=== PATIENT | female | born 1960 | race American Indian/Alaskan Native ===

== ENCOUNTER 2017-09-11 17:28 | Inpatient (IN) | payer MEDICARE ==
[2017-09-11 17:43] LABS: Basophils % (Auto) 0.9 % (0.0-1.8); Eosinophils % (Auto) 4.5 % (0.0-4.3); Hematocrit 40.3 % (30.3-42.9); Hemoglobin 12.7 gm/dl (10.1-14.3); Mean Corpuscular HGB Conc 32 % (30-34); Mean Corpuscular Hemoglobin 27 pg (28-32); Mean Corpuscular Volume 87 fl (79-97); Platelet Count 235 K/mm3 (140-440); Red Blood Count 4.64 M/mm3 (3.65-5.03); Red Cell Distribution Width 15.8 % (13.2-15.2)
--- NOTE | 2017-09-11 17:58 | Cat Scan Report ---
FINAL REPORT PROCEDURE: CT HEAD/BRAIN WO CON TECHNIQUE: Computerized tomography of the head was performed without contrast material. HISTORY: neuro deficits < 6hrs or sx present upon awakening COMPARISON: 07/14/2017 FINDINGS: Skull and scalp: Numerous sclerotic lesions in the calvarium suspicious for metastatic disease. Defer to nuclear medicine bone scan or MRI. Paranasal sinuses: Moderate fluid left mild fluid right mastoid. Coalescent air cells left side. Slight mucosal thickening left posterior maxillary sinus. Ventricles and subarachnoid spaces: Normal. Cerebrum: No acute intracranial bleed. Multiple infarcts and areas of encephalomalacia basal ganglia thalami left frontal high right parietal brain deep white matter. Cerebellum and brainstem: No acute intracranial bleed. Multiple areas of low to medium attenuation in the cerebellar hemispheres similar prior study. Low attenuated area in the eamon similar prior study. Vasculature: No hyperdense MCA sign Comments: None. IMPRESSION: Multiple areas of lacunar disease with prior encephalomalacic changes basal ganglia cerebellar hemispheres similar to prior study. If symptoms and or concern persists recommend followup MRI to further evaluate. No hyperdense MCA sign seen at this time.
[2017-09-11 18:00] LABS: Calcium 6.8 mg/dL (8.4-10.2); Chloride 94.7 mmol/L (98-107); Potassium 3.2 mmol/L (3.6-5.0)
[2017-09-11 18:02] LABS: INR 1.27 (0.87-1.13); Partial Thromboplastin Time 34.9 Sec. (24.2-36.6)
[2017-09-11] MEDS ORDERED: DILANTIN 1,000 MG in NACL 0.9% 250ML 250 ML IV ONE (18:42)
--- NOTE | 2017-09-11 18:42 | Emergency Department Report ---
ED General Adult HPI - General Chief complaint: Neuro Symptoms/Deficit Stated complaint: POSS CVA Time Seen by Provider: 09/11/17 17:33 Source: patient, family, EMS (verbal report received from EMS. My EMS disclaimerems notes not available at time of chart dictation), RN notes reviewed, old records reviewed Mode of arrival: Stretcher Limitations: No Limitations - History of Present Illness Initial comments: This is a 57-year-old female who is previously unknown to this provider. Past medical history includes hypertension, stroke, end-stage renal disease on dialysis. Patient may also have a history of seizure disorder, no recent EEG at this hospital as noted. Patient brought to the hospital by EMS as a possible code stroke. As per verbal report from EMS, patient had a seizure, and subsequently had left arm weakness and possible slurred speech. All of these symptoms have since resolved. Patient denies all symptoms. Her symptoms do not radiate anywhere, and he did not have exacerbating or relieving factors. Of note, patient admitted to this hospital in June of this year for similar symptoms, MRI, MRA were negative for acute and significant findings, and an EEG was recommended, which does not appear to have been performed. Patient currently has a GCS of 15, with an NIH score of 0. Case was presenting to consult the stroke neurologist, Dr. Rashawn Keane; he agreed that the patient did not meet criteria for TPA. He did recommend initiation of Dilantin, 300 mg orally daily at bedtime. He also recommends EEG. I also discussed the case with the patient's covering is support analyst, Dr. Luis A Méndez ; he is going to arrange dialysis. The patient had emergent CTA head and neck . This was negative. The case was presented to the Hospital physician, Dr. Johnson, accepted the patient to the medical service. Working diagnosis at this time is seizure disorder with resolved postictal state and hemiparesis. -: Sudden Location: left, upper extremity Consistency: now resolved Improves with: none Worsens with: none Associated Symptoms: denies: confusion, chest pain, cough, diaphoresis, fever/ chills, loss of appetite, malaise, nausea/vomiting, shortness of breath, syncope , weakness - Related Data Home Medications Medication Instructions Recorded Confirmed Last Taken Ondansetron HCl 4 mg PO BID 06/10/17 09/11/17 09/10/17 Aspirin [Aspirin BABY CHEW TAB] 81 mg PO DAILY 09/11/17 09/11/17 09/10/17 AtorvaSTATin [Lipitor] 40 mg PO QHS 09/11/17 09/11/17 09/10/17 Lisinopril [Zestril] 5 mg PO DAILY 09/11/17 09/11/17 09/10/17 Megestrol Acetate [Megestrol 20 mg PO BID 09/11/17 09/11/17 Unknown Acetate] Verapamil ER [Calan SR] 240 mg PO DAILY 09/11/17 09/11/17 09/10/17 Previous Rx's Medication Instructions Recorded Last Taken Type Apixaban [Eliquis] 5 mg PO BID #60 tablet 07/18/17 09/10/17 Rx Sertraline [Zoloft] 25 mg PO QHS #30 tablet 07/18/17 09/10/17 Rx Allergies Allergy/AdvReac Type Severity Reaction Status Date / Time No Known Allergies Allergy Verified 09/11/17 18:05 ED Review of Systems ROS: Stated complaint: POSS CVA Other details as noted in HPI ED Past Medical Hx - Past Medical History Hx CVA: Yes (CVA 2016, TIA x12) Hx Congestive Heart Failure: Yes Hx Diabetes: No Hx Renal Disease: Yes (Dialysis MWF) Hx Asthma: No Hx COPD: No - Surgical History Additional Surgical History: Left AV graft - Social History Smoking Status: Never Smoker Substance Use Type: None - Medications Home Medications: Home Medications Medication Instructions Recorded Confirmed Last Taken Type Ondansetron HCl 4 mg PO BID 06/10/17 09/11/17 09/10/17 History Apixaban [Eliquis] 5 mg PO BID #60 tablet 07/18/17 09/11/17 09/10/17 Rx Sertraline [Zoloft] 25 mg PO QHS #30 tablet 07/18/17 09/11/17 09/10/17 Rx Aspirin [Aspirin BABY CHEW TAB] 81 mg PO DAILY 09/11/17 09/11/17 09/10/17 History AtorvaSTATin [Lipitor] 40 mg PO QHS 09/11/17 09/11/17 09/10/17 History Lisinopril [Zestril] 5 mg PO DAILY 09/11/17 09/11/17 09/10/17 History Megestrol Acetate [Megestrol 20 mg PO BID 09/11/17 09/11/17 Unknown History Acetate] Verapamil ER [Calan SR] 240 mg PO DAILY 09/11/17 09/11/17 09/10/17 History ED Physical Exam - General Limitations: No Limitations General appearance: alert, in no apparent distress - Head Head exam: Present: atraumatic, normocephalic - Eye Eye exam: Present: normal appearance, EOMI. Absent: nystagmus - ENT ENT exam: Present: normal exam, normal orophraynx, mucous membranes moist, normal external ear exam - Neck Neck exam: Present: normal inspection, full ROM - Respiratory Respiratory exam: Present: normal lung sounds bilaterally. Absent: respiratory distress - Cardiovascular Cardiovascular Exam: Present: regular rate, normal rhythm, normal heart sounds. Absent: systolic murmur, diastolic murmur, rubs, gallop - GI/Abdominal GI/Abdominal exam: Present: soft, normal bowel sounds. Absent: distended, tenderness, guarding, rebound, rigid, pulsatile mass - Extremities Exam Extremities exam: Present: normal inspection, full ROM, normal capillary refill , other (upper extremity AV fistula with no redness, pus or or cellulitis). Absent: pedal edema, joint swelling, calf tenderness - Back Exam Back exam: Present: normal inspection, full ROM. Absent: tenderness, CVA tenderness (R), paraspinal tenderness, vertebral tenderness - Neurological Exam Neurological exam: Present: alert, oriented X3, CN II-XII intact, other ( Extraocular movements intact. Tongue midline. No facial droop. Facial sensation intact to light touch in the V1, V2, V3 distribution bilaterally. 5 and 5 strength in 4 extremities.. Sensation is intact to light touch in 4 extremities.). Absent: motor sensory deficit - Psychiatric Psychiatric exam: Present: normal affect, normal mood - Skin Skin exam: Present: warm, dry, intact, normal color. Absent: rash ED Course Vital Signs 09/11/17 09/11/17 09/11/17 17:58 18:01 18:05 Temperature 98.4 F Pulse Rate 99 H 92 H 93 H Respiratory 13 18 Rate Blood Pressure 136/93 136/93 Blood Pressure [Right] O2 Sat by Pulse 100 Oximetry 09/11/17 09/11/17 09/11/17 18:15 18:30 18:45 Temperature Pulse Rate 96 H 97 H 96 H Respiratory 15 11 L 15 Rate Blood Pressure 136/92 142/103 153/99 Blood Pressure [Right] O2 Sat by Pulse Oximetry 09/11/17 09/11/17 09/11/17 19:00 19:15 19:30 Temperature Pulse Rate 97 H 99 H 98 H Respiratory 14 12 16 Rate Blood Pressure 156/101 161/103 157/103 Blood Pressure [Right] O2 Sat by Pulse Oximetry 09/11/17 09/11/17 09/11/17 19:45 20:00 20:15 Temperature Pulse Rate 101 H 102 H 104 H Respiratory 14 16 17 Rate Blood Pressure 148/101 144/100 145/106 Blood Pressure [Right] O2 Sat by Pulse Oximetry 09/11/17 21:47 Temperature Pulse Rate 102 H Respiratory 20 Rate Blood Pressure Blood Pressure 138/100 [Right] O2 Sat by Pulse 98 Oximetry - Consultations Consultation #1: 09/11/17 22:08 Neurology: Dr Rashawn Keane Nephrology: [facility] medicine: Dr. Johny Pool Medical Decision Making - Lab Data Result diagrams: 09/11/17 17:30 09/11/17 17:30 Vital Signs 09/11/17 09/11/17 09/11/17 17:58 18:01 18:05 Temperature 98.4 F Pulse Rate 99 H 92 H 93 H Respiratory 13 18 Rate Blood Pressure 136/93 136/93 Blood Pressure [Right] O2 Sat by Pulse 100 Oximetry 09/11/17 09/11/17 09/11/17 18:15 18:30 18:45 Temperature Pulse Rate 96 H 97 H 96 H Respiratory 15 11 L 15 Rate Blood Pressure 136/92 142/103 153/99 Blood Pressure [Right] O2 Sat by Pulse Oximetry 09/11/17 09/11/17 09/11/17 19:00 19:15 19:30 Temperature Pulse Rate 97 H 99 H 98 H Respiratory 14 12 16 Rate Blood Pressure 156/101 161/103 157/103 Blood Pressure [Right] O2 Sat by Pulse Oximetry 09/11/17 09/11/17 09/11/17 19:45 20:00 20:15 Temperature Pulse Rate 101 H 102 H 104 H Respiratory 14 16 17 Rate Blood Pressure 148/101 144/100 145/106 Blood Pressure [Right] O2 Sat by Pulse Oximetry 09/11/17 21:47 Temperature Pulse Rate 102 H Respiratory 20 Rate Blood Pressure Blood Pressure 138/100 [Right] O2 Sat by Pulse 98 Oximetry Lab Results 09/11/17 09/11/17 09/11/17 Range/Units 17:30 17:30 17:30 WBC 12.0 H (4.5-11.0) K/mm3 RBC 4.64 (3.65-5.03) M/mm3 Hgb 12.7 (10.1-14.3) gm/dl Hct 40.3 (30.3-42.9) % MCV 87 (79-97) fl MCH 27 L (28-32) pg MCHC 32 (30-34) % RDW 15.8 H (13.2-15.2) % Plt Count 235 (140-440) K/mm3 Lymph % (Auto) 22.8 (13.4-35.0) % Garfield % (Auto) 9.5 H (0.0-7.3) % Eos % (Auto) 4.5 H (0.0-4.3) % Baso % (Auto) 0.9 (0.0-1.8) % Lymph # 2.7 (1.2-5.4) K/mm3 Garfield # 1.1 H (0.0-0.8) K/mm3 Eos # 0.5 H (0.0-0.4) K/mm3 Baso # 0.1 (0.0-0.1) K/mm3 Seg Neutrophils % 62.3 (40.0-70.0) % Seg Neutrophils # 7.5 (1.8-7.7) K/mm3 PT 16.6 H (12.2-14.9) Sec. INR 1.27 H (0.87-1.13) APTT 34.9 (24.2-36.6) Sec. Thrombin Time (15.1-19.6) Sec. Sodium 141 (137-145) mmol/L Potassium 3.2 L (3.6-5.0) mmol/L Chloride 94.7 L (98-107) mmol/L Carbon Dioxide 18 L (22-30) mmol/L Anion Gap 32 mmol/L BUN 52 H (7-17) mg/dL Creatinine 9.5 H (0.7-1.2) mg/dL Estimated GFR 5 ml/min BUN/Creatinine Ratio 5 % Glucose 106 H (65-100) mg/dL Calcium 6.8 L (8.4-10.2) mg/dL Troponin T 0.058 H (0.00-0.029) ng/mL Triglycerides 131 (2-149) mg/dL Cholesterol 122 (50-199) mg/dL LDL Cholesterol Direct 60 (50-130) mg/dL HDL Cholesterol 36 L (40-59) mg/dL Cholesterol/HDL Ratio 3.38 % 09/11/17 Range/Units 17:30 WBC (4.5-11.0) K/mm3 RBC (3.65-5.03) M/mm3 Hgb (10.1-14.3) gm/dl Hct (30.3-42.9) % MCV (79-97) fl MCH (28-32) pg MCHC (30-34) % RDW (13.2-15.2) % Plt Count (140-440) K/mm3 Lymph % (Auto) (13.4-35.0) % Garfield % (Auto) (0.0-7.3) % Eos % (Auto) (0.0-4.3) % Baso % (Auto) (0.0-1.8) % Lymph # (1.2-5.4) K/mm3 Garfield # (0.0-0.8) K/mm3 Eos # (0.0-0.4) K/mm3 Baso # (0.0-0.1) K/mm3 Seg Neutrophils % (40.0-70.0) % Seg Neutrophils # (1.8-7.7) K/mm3 PT (12.2-14.9) Sec. INR (0.87-1.13) APTT (24.2-36.6) Sec. Thrombin Time 19.1 (15.1-19.6) Sec. Sodium (137-145) mmol/L Potassium (3.6-5.0) mmol/L Chloride (98-107) mmol/L Carbon Dioxide (22-30) mmol/L Anion Gap mmol/L BUN (7-17) mg/dL Creatinine (0.7-1.2) mg/dL Estimated GFR ml/min BUN/Creatinine Ratio % Glucose (65-100) mg/dL Calcium (8.4-10.2) mg/dL Troponin T (0.00-0.029) ng/mL Triglycerides (2-149) mg/dL Cholesterol (50-199) mg/dL LDL Cholesterol Direct (50-130) mg/dL HDL Cholesterol (40-59) mg/dL Cholesterol/HDL Ratio % - EKG Data -: EKG Interpreted by Me - EKG Data 09/11/17 22:08 Sinus, 96 bpm, normal axis, prolonged QTC, abnormal EKG, not consistent with ST elevation myocardial infarction - Radiology Data Radiology results: report reviewed, image reviewed Noncontrast CT scan of the brain is negative for acute findings. Chronic findings noted. CT scan of the head and neck with contrast negative for arterial disease. Critical care attestation.: If time is entered above; I have spent that time in minutes in the direct care of this critically ill patient, excluding procedure time. ED Disposition Clinical Impression: ESRD (end stage renal disease) on dialysis, TIA (transient ischemic attack), Convulsion Disposition: 09 OP ADMIT IP TO THIS HOSP Is pt being admited?: Yes Does the pt Need Aspirin: Yes Condition: Stable Referrals: PRIMARY CARE, [Primary Care Provider] - 3-5 Days
--- NOTE | 2017-09-11 18:50 | Cat Scan Report ---
FINAL REPORT PROCEDURE: CT ANGIO NECK TECHNIQUE: Computerized tomographic angiography of the neck was performed after the IV injection of iodinated nonionic contrast including image processing. The image data was postprocessed using 2-dimensional multiplanar reformatted (MPR) and 3-dimensional (MIP and/or volume rendered) techniques. HISTORY: cva COMPARISON: No prior studies are available for comparison. Note: Assessment of carotid artery stenosis is based on measurement of the distal internal carotid artery diameter as the denominator for stenosis calculations and the [place] Symptomatic Carotid Endarterectomy Trial (NASCET) stenosis criteria . CPT 3100F FINDINGS: Upper thorax: Small right tiny left posterior pleural effusion. Pulmonary emphysema. Possible right pretracheal adenopathy 2 centimeter range left paracentral 1.5 centimeter range Brain: Mild diffuse atrophy with moderate low attenuated microischemic change. Central lacunar infarct disease in the basal ganglia thalami Aortic arch: Mild aortic atherosclerosis. Right carotid artery: Normal . Left carotid artery: Normal . Vertebral arteries: Dominant vertebral artery. Severely attenuated left vertebral artery particularly distally IMPRESSION: No endoluminal defect seen
--- NOTE | 2017-09-11 18:54 | Cat Scan Report ---
FINAL REPORT PROCEDURE: CT ANGIO HEAD TECHNIQUE: Computerized tomographic angiography of the head was performed after the IV injection of iodinated nonionic contrast including image processing. The image data was postprocessed using 2-dimensional multiplanar reformatted (MPR) and 3-dimensional (MIP and/or volume rendered) techniques. HISTORY: cva COMPARISON: CT head without contrast. CTA neck. FINDINGS: Cerebrum: No evidence of hemorrhage, acute ischemia or mass. Cerebellum: No evidence of hemorrhage, acute ischemia or mass. Subarachnoid spaces and ventricles: Normal. Intracranial vessels: Carotid siphon: Normal. Anterior cerebral: Normal. Middle cerebral: Normal. Posterior cerebral:Normal. Vertebral arteries including basilar: Dominant right with attenuated left vertebral artery Aneurysms: None. Dural sinuses: Normal. IMPRESSION: No endoluminal arterial defect seen
[2017-09-11] MEDS ORDERED: BABY ASPIRIN PO ONE (19:17)
[2017-09-11] MEDS ORDERED: TYLENOL ONE (19:26)
[2017-09-11] MEDS ORDERED: TYLENOL PO ONE (19:50)
[2017-09-11] MEDS ORDERED: TYLENOL PO SCH (20:00)
--- NOTE | 2017-09-11 20:16 | History and Physical Report ---
Medications and Allergies Allergies Allergy/AdvReac Type Severity Reaction Status Date / Time No Known Allergies Allergy Verified 09/11/17 18:05 Home Medications Medication Instructions Recorded Confirmed Last Taken Type Ondansetron HCl 4 mg PO BID 06/10/17 09/11/17 09/10/17 History Apixaban [Eliquis] 5 mg PO BID #60 tablet 07/18/17 09/11/17 09/10/17 Rx Sertraline [Zoloft] 25 mg PO QHS #30 tablet 07/18/17 09/10/17 Rx Aspirin [Aspirin BABY CHEW TAB] 81 mg PO DAILY 09/11/17 09/11/17 09/10/17 History AtorvaSTATin [Lipitor] 40 mg PO DAILY 09/11/17 09/11/17 09/10/17 History Lisinopril [Zestril] 5 mg PO DAILY 09/11/17 09/11/17 09/10/17 History Megestrol Acetate [Megestrol 20 mg PO BID 09/11/17 09/11/17 Unknown History Acetate] Verapamil ER [Calan SR] 240 mg PO DAILY 09/11/17 09/11/17 09/10/17 History Exam - Constitutional Vitals: Temp Pulse Resp BP Pulse Ox 98.4 F 99 H 12 161/103 100 09/11/17 18:05 09/11/17 19:15 09/11/17 19:15 09/11/17 19:15 09/11/17 18:05 Results - Labs CBC & Chem 7: 09/11/17 17:30 09/11/17 17:30 Labs: Abnormal lab results 09/11/17 09/11/17 09/11/17 Range/Units 17:30 17:30 17:30 WBC 12.0 H (4.5-11.0) K/mm3 MCH 27 L (28-32) pg RDW 15.8 H (13.2-15.2) % Roberts % (Auto) 9.5 H (0.0-7.3) % Eos % (Auto) 4.5 H (0.0-4.3) % Roberts # 1.1 H (0.0-0.8) K/mm3 Eos # 0.5 H (0.0-0.4) K/mm3 PT 16.6 H (12.2-14.9) Sec. INR 1.27 H (0.87-1.13) Potassium 3.2 L (3.6-5.0) mmol/L Chloride 94.7 L (98-107) mmol/L Carbon Dioxide 18 L (22-30) mmol/L BUN 52 H (7-17) mg/dL Creatinine 9.5 H (0.7-1.2) mg/dL Glucose 106 H (65-100) mg/dL Calcium 6.8 L (8.4-10.2) mg/dL Troponin T 0.058 H (0.00-0.029) ng/mL HDL Cholesterol 36 L (40-59) mg/dL
[2017-09-11] MEDS ORDERED: ZOFRAN ONE (22:22)
--- NOTE | 2017-09-11 22:28 | History and Physical Report ---
History of Present Illness Date of examination: 09/11/17 History of present illness: 57-year-old woman with a history of end-stage renal disease on dialysis Saturday, Saturday, Saturday, CVA, hypertension, seizure was brought to the emergency room per the emergency room physician because she had a seizure and didn't develop slurred speech and left arm weakness. Her symptoms have now been resolved, the patient to a poor historian, very difficult to elicit a history and review of systems PAST MEDICAL HISTORY:end-stage renal disease on dialysis Saturday, Saturday, Saturday, CVA, hypertension, seizure PAST SURGICAL HISTORY: AV fistula FAMILY HISTORY: Hypertension SOCIAL HISTORY: Denies alcohol, tobacco, drug Medications and Allergies Allergies Allergy/AdvReac Type Severity Reaction Status Date / Time No Known Allergies Allergy Verified 09/11/17 18:05 Home Medications Medication Instructions Recorded Confirmed Last Taken Type Ondansetron HCl 4 mg PO BID 06/10/17 09/11/17 09/10/17 History Apixaban [Eliquis] 5 mg PO BID #60 tablet 07/18/17 09/11/17 09/10/17 Rx Sertraline [Zoloft] 25 mg PO QHS #30 tablet 07/18/17 09/11/17 09/10/17 Rx Aspirin [Aspirin BABY CHEW TAB] 81 mg PO DAILY 09/11/17 09/11/17 09/10/17 History AtorvaSTATin [Lipitor] 40 mg PO QHS 09/11/17 09/11/17 09/10/17 History Lisinopril [Zestril] 5 mg PO DAILY 09/11/17 09/11/17 09/10/17 History Megestrol Acetate [Megestrol 20 mg PO BID 09/11/17 09/11/17 Unknown History Acetate] Verapamil ER [Calan SR] 240 mg PO DAILY 09/11/17 09/11/17 09/10/17 History Active Meds: Active Medications Enoxaparin Sodium (Lovenox) 30 mg SUB-Q QDAY THADDEUS Exam - Physical Exam Narrative exam: Gen. appearance: Patient lying in bed in no acute distress HEENT: Normocephalic/atraumatic, pupils equal round reactive to light, extra occular movement intact, no scleral icterus, no JVD or thyromegaly or nodule, neck is supple, mucous membrane moist, no erythema or exudate Heart: S1-S2, regular rate and rhythm Lungs: Clear to auscultation bilateral breathing comfortable Abdomen: Positive bowel sounds, nontender, nondistended, no organomegaly Extremities: No edema, cyanosis, clubbing Neuro:: Oriented 3 , cranial nerves II-12 intact, speech, motor intact Skin: No rash, nodules, warm dry - Constitutional Vitals: Temp Pulse Resp BP Pulse Ox 98.4 F 102 H 20 138/100 98 09/11/17 18:05 09/11/17 21:47 09/11/17 21:47 09/11/17 21:47 09/11/17 21:47 Results - Labs CBC & Chem 7: 09/11/17 17:30 09/11/17 17:30 Labs: Abnormal lab results 09/11/17 09/11/17 09/11/17 Range/Units 17:30 17:30 17:30 WBC 12.0 H (4.5-11.0) K/mm3 MCH 27 L (28-32) pg RDW 15.8 H (13.2-15.2) % [place] % (Auto) 9.5 H (0.0-7.3) % Eos % (Auto) 4.5 H (0.0-4.3) % [place] # 1.1 H (0.0-0.8) K/mm3 Eos # 0.5 H (0.0-0.4) K/mm3 PT 16.6 H (12.2-14.9) Sec. INR 1.27 H (0.87-1.13) Potassium 3.2 L (3.6-5.0) mmol/L Chloride 94.7 L (98-107) mmol/L Carbon Dioxide 18 L (22-30) mmol/L BUN 52 H (7-17) mg/dL Creatinine 9.5 H (0.7-1.2) mg/dL Glucose 106 H (65-100) mg/dL Calcium 6.8 L (8.4-10.2) mg/dL Troponin T 0.058 H (0.00-0.029) ng/mL HDL Cholesterol 36 L (40-59) mg/dL - Imaging and Cardiology CT Scan - head: report reviewed Assessment and Plan CT angiogram of the head and neck negative Assessment seizure, acute End-stage renal disease needing dialysis Hypertension History of CVA Plan Status post Dilantin dose, start IV Ativan as needed Obtain EEG, consult neurology Consult renal for dialysis Continue appropriate outpatient medication, DVT prophylaxis
[2017-09-11] MEDS ORDERED: ZOFRAN IV ONE (22:35)
[2017-09-12] MEDS ORDERED: DULCOLAX PR PRN (01:55)
[2017-09-12] MEDS ORDERED: ZOFRAN IV PRN (01:55)
[2017-09-12] MEDS ORDERED: ATIVAN IV PRN (01:55)
[2017-09-12] MEDS ORDERED: MILK OF MAGNESIA PO PRN (01:55)
--- NOTE | 2017-09-12 07:28 | Consultation ---
History of Present Illness - Reason for Consult Consult date: 09/12/17 end stage renal disease, other (anemia) - History of Present Illness The patient is a 57-year-old AAF with medical history significant for ESRD on hemodialysis (MWF) followed by , Hypertension, CVA and Anemia who was brought into the hospital for evaluation of seizure and possible CVA. Patient is not able to provide any history. Patient brought to the hospital by EMS as a possible code stroke. Per EMS, patient had a seizure, and subsequently had left arm weakness and possible slurred speech. All of these symptoms have since resolved when she arrived in ED. She was last dialyzed 3 days ago. Past History Past Medical History: dialysis, ESRD, hypertension Medications and Allergies Allergies Allergy/AdvReac Type Severity Reaction Status Date / Time No Known Allergies Allergy Verified 09/11/17 18:05 Home Medications Medication Instructions Recorded Confirmed Last Taken Type Ondansetron HCl 4 mg PO BID 06/10/17 09/11/17 09/10/17 History Apixaban [Eliquis] 5 mg PO BID #60 tablet 07/18/17 09/11/17 09/10/17 Rx Sertraline [Zoloft] 25 mg PO QHS #30 tablet 07/18/17 09/11/17 09/10/17 Rx Aspirin [Aspirin BABY CHEW TAB] 81 mg PO DAILY 09/11/17 09/11/17 09/10/17 History AtorvaSTATin [Lipitor] 40 mg PO QHS 09/11/17 09/11/17 09/10/17 History Lisinopril [Zestril] 5 mg PO DAILY 09/11/17 09/11/17 09/10/17 History Megestrol Acetate [Megestrol 20 mg PO BID 09/11/17 09/11/17 Unknown History Acetate] Verapamil ER [Calan SR] 240 mg PO DAILY 09/11/17 09/11/17 09/10/17 History Active Meds: Active Medications Acetaminophen (Tylenol) 650 mg PO Q4H PRN PRN Reason: Pain MILD(1-3)/Fever >100.5/DA SILVA Bisacodyl (Dulcolax) 10 mg [place] QDAY PRN PRN Reason: Constipation unrelieved by MOM Enoxaparin Sodium (Lovenox) 30 mg SUB-Q QDAY THADDEUS Lorazepam (Ativan) 1 mg IV Q4H PRN PRN Reason: Seizures Magnesium Hydroxide (Milk Of Magnesia) 30 ml PO Q4H PRN PRN Reason: Constipation Ondansetron HCl (Zofran) 4 mg IV Q8H PRN PRN Reason: N/V unrelieved by Reglan Review of Systems ROS unobtainable: due to mental status Exam - Vital Signs Vital signs: Vital Signs Pulse 99 H 09/11/17 17:58 - General Appearance General appearance: well-developed, well-nourished, appears stated age, other ( no distress) EENT: ATNC, PERRL, hearing intact, vision intact Neck: Present: neck supple, trachea midline Respiratory: Clear to Ascultation Heart: regular, S1S2, no murmurs Gastrointestinal: Present: normoactive bowel sounds. Absent: tenderness, distended Integumentary: no rash, warm and dry Neurologic: no focal deficit, no asterixis, confused, disoriented Musculoskeletal: Present: other (no edema, left arm AVF) Psychiatric: mood/affect appropriate, cooperative Results - Lab Results 09/13/17 04:29 09/13/17 04:29 Most recent lab results Calcium 6.8 mg/dL (8.4-10.2) L 09/11/17 17:30 Assessment and Plan 1. ESRD: Hemodialysis today. 2. Anemia. 3. Hypertension. 4. CVA. 5. Seizure disorder. D/w regarding placement. He has been trying to place her in a NH. Negar SHARMA
[2017-09-12] MEDS ORDERED: NACL 0.9% 100 ML IV PRN (10:00)
[2017-09-12] MEDS: LOVENOX SUB-Q SCH (11:33)
--- NOTE | 2017-09-12 11:37 | Consultation ---
History of Present Illness Consult date: 09/12/17 Requesting physician: ORIANA ALFARO Reason for Consult: seizure History of present illness: This 57 year old female was brought to the ER following a seizure and left hemiparesis as described by EMS. Hemiparesis has resolved. She has a history of hypertension, ESRD, on dialysis, cerebrovascular disease. The patient is a poor historian and has no recollection of what happened. Apparently she had been seen for a similar event in Jun. She was given dilantin in the ER. CT scan of the brain reveals multiple lacunes in the basal ganglia and thalami. CTA neck and brain do not reveal any large vessel pathology. An EEG is pending. The patient lives with family, none of whom are present to give further information. Past History Past Medical History: hypertension, renal failure Past Surgical History: No surgical history Social history: lives with family. denies: smoking, alcohol abuse Family history: hypertension Medications and Allergies Allergies Allergy/AdvReac Type Severity Reaction Status Date / Time No Known Allergies Allergy Verified 09/11/17 18:05 Home Medications Medication Instructions Recorded Confirmed Last Taken Type Ondansetron HCl 4 mg PO BID 06/10/17 09/11/17 09/10/17 History Apixaban [Eliquis] 5 mg PO BID #60 tablet 07/18/17 09/11/17 09/10/17 Rx Sertraline [Zoloft] 25 mg PO QHS #30 tablet 07/18/17 09/11/17 09/10/17 Rx Aspirin [Aspirin BABY CHEW TAB] 81 mg PO DAILY 09/11/17 09/11/17 09/10/17 History AtorvaSTATin [Lipitor] 40 mg PO QHS 09/11/17 09/11/17 09/10/17 History Lisinopril [Zestril] 5 mg PO DAILY 09/11/17 09/11/17 09/10/17 History Megestrol Acetate [Megestrol 20 mg PO BID 09/11/17 09/11/17 Unknown History Acetate] Verapamil ER [Calan SR] 240 mg PO DAILY 09/11/17 09/11/17 09/10/17 History Active Meds: Active Medications Acetaminophen (Tylenol) 650 mg PO Q4H PRN PRN Reason: Pain MILD(1-3)/Fever >100.5/DA SILVA Bisacodyl (Dulcolax) 10 mg VT QDAY PRN PRN Reason: Constipation unrelieved by MOM Enoxaparin Sodium (Lovenox) 30 mg SUB-Q QDAY THADDEUS Last Admin: 09/12/17 11:33 Dose: 30 mg Sodium Chloride (Nacl 0.9%) 100 mls @ 999 mls/hr IV ROYA PRN PRN Reason: Hypotension Lorazepam (Ativan) 1 mg IV Q4H PRN PRN Reason: Seizures Magnesium Hydroxide (Milk Of Magnesia) 30 ml PO Q4H PRN PRN Reason: Constipation Ondansetron HCl (Zofran) 4 mg IV Q8H PRN PRN Reason: N/V unrelieved by Reglan Review of Systems Constitutional: weakness, poor appetite, no weight loss, no weight gain, no chronic pain Ears, nose, mouth and throat: no decreased hearing Cardiovascular: syncope, no chest pain, no orthopnea, no palpitations, no rapid/ irregular heart beat, no edema, no shortness of breath Respiratory: no cough, no shortness of breath, no congestion Gastrointestinal: no abdominal pain, no nausea, no vomiting, no diarrhea, no constipation Genitourinary Female: no dysuria, no urinary frequency, no urgency Musculoskeletal: no neck stiffness, no neck pain, no arm numbness/tingling, no leg numbness/tingling Neurological: weakness, no parathesias, no numbness, no tingling, no headaches Physical Examination - Vital Signs Vital Signs: Vital Signs Pulse 99 H 09/11/17 17:58 - Constitutional General appearance: comfortable - EENT EENT: Present: PERRL, mucous membranes moist, hearing intact, vision intact - Respiratory Respiratory: Present: lungs clear - Cardiovascular Cardiovascular: Present: regular rate, normal S2 Extremities: Present: no peripheral edema bilatateraly, no clubbing, cyanosis, no inflammation - Gastrointestinal Gastrointestinal: Present: soft, non-tender - Neurologic Cranial nerve examination: PERRL, EOMI, V1/V2/V3 grossly intact, face symmetric , tongue midline, intact shoulder shrug Speech examination: intact Sensorimotor examination: pronator drift, other (difficulty pronating left arm. possible neglect.) Detailed motor examination: grossly full strength in, full strength in all josep Motor examination - right side: 5/5: biceps, triceps, wrist flexion, wrist extension, hip flexors, knee extensors, dorsiflexion, toe extension (EHL), plantarflexion Motor examination - left side: 5/5: biceps, triceps, wrist flexion, wrist extension, hip flexors, knee extensors, dorsiflexion, toe extension (EHL), plantarflexion Detailed sensory examination: intact, light touch, pain Reflex and gait examination: intact Reflexes: 1+: ankle, bicep, knee, tricep - Psychiatric Psychiatric: Present: mood/affect appropriate, cooperative Results - Laboratory Findings CBC and BMP: 09/11/17 17:30 09/11/17 17:30 Abnormal Lab Findings: Abnormal Labs 09/11/17 09/11/17 09/11/17 17:30 17:30 17:30 WBC 12.0 H MCH 27 L RDW 15.8 H [place] % (Auto) 9.5 H Eos % (Auto) 4.5 H [place] # 1.1 H Eos # 0.5 H PT 16.6 H INR 1.27 H Potassium 3.2 L Chloride 94.7 L Carbon Dioxide 18 L BUN 52 H Creatinine 9.5 H Glucose 106 H Calcium 6.8 L Troponin T 0.058 H HDL Cholesterol 36 L Assessment and Plan 57 year old female with history of ESRD on dialysis, hypertension, cerebrovascular disease, presents for a second time with seizure. (previous event in Jun.) CT scan reveals stable lacunar disease, no new events. CTA neck and brain without large vessel disease. She is taking Aspirin daily. Plan - Dilantin 300 mg at bedtime EEG ordered. Dialysis being arranged.
--- NOTE | 2017-09-12 13:46 | Progress Note ---
<SAMSONRENA BOWIE - Last Filed: 09/12/17 13:52> Assessment and Plan Assessment and plan: Patient is a 57-year-old woman with a history of end-stage renal disease on dialysis Saturday, Saturday, Saturday, CVA, hypertension, seizure was brought to the emergency room per the emergency room physician because she had a seizure. Status Epilepticus Continue on Dilantin Frequent neuro checks. We will obtain EEG its pending Ativan when necessary Oxygen supplement when necessary Implement seizure precautions Neurology Following Supportive care End-stage renal disease needing dialysis History of CVA Continue on ASA, statins and Physical therapy on board Hypertension Resume home antihypertensive medications Closely monitor blood pressure Hypokalemia Replaced Closely Monitor electrolytes Elevated Troponin Most likely due to ESRD; patient previous labs has been elevated troponin as well. Leukocytosis. Reactive,no source of infection Closely monitor DVT prophylaxis Lovenox History Interval history: Patient denies having any discomforts. No episode of seizure. Labs and nursing notes reviewed Hospitalist Physical - Constitutional Vitals: Temp Pulse Resp BP Pulse Ox 98.5 F 88 18 171/101 97 09/12/17 08:17 09/12/17 08:17 09/12/17 08:17 09/12/17 08:17 09/12/17 08:17 General appearance: Present: other (alert oriented 2) - EENT Eyes: Present: PERRL, EOM intact ENT: hearing intact - Neck Neck: Present: supple - Respiratory Respiratory effort: normal Respiratory: bilateral: CTA - Cardiovascular Rhythm: regular Heart Sounds: Present: S1 & S2 - Abdominal General gastrointestinal: soft, non-tender - Integumentary Integumentary: Present: clear, warm, dry - Psychiatric Psychiatric: appropriate mood/affect - Neurologic Neurologic: moves all extremities - Allied Health Allied health notes reviewed: nursing Results - Labs CBC & Chem 7: 09/11/17 17:30 09/11/17 17:30 Labs: Laboratory Last Values WBC 12.0 K/mm3 (4.5-11.0) H 09/11/17 17:30 RBC 4.64 M/mm3 (3.65-5.03) 09/11/17 17:30 Hgb 12.7 gm/dl (10.1-14.3) 09/11/17 17:30 Hct 40.3 % (30.3-42.9) 09/11/17 17:30 MCV 87 fl (79-97) 09/11/17 17:30 MCH 27 pg (28-32) L 09/11/17 17:30 MCHC 32 % (30-34) 09/11/17 17:30 RDW 15.8 % (13.2-15.2) H 09/11/17 17:30 Plt Count 235 K/mm3 (140-440) 09/11/17 17:30 Lymph % (Auto) 22.8 % (13.4-35.0) 09/11/17 17:30 [place] % (Auto) 9.5 % (0.0-7.3) H 09/11/17 17:30 Eos % (Auto) 4.5 % (0.0-4.3) H 09/11/17 17:30 Baso % (Auto) 0.9 % (0.0-1.8) 09/11/17 17:30 Lymph # 2.7 K/mm3 (1.2-5.4) 09/11/17 17:30 [place] # 1.1 K/mm3 (0.0-0.8) H 09/11/17 17:30 Eos # 0.5 K/mm3 (0.0-0.4) H 09/11/17 17:30 Baso # 0.1 K/mm3 (0.0-0.1) 09/11/17 17:30 Seg Neutrophils % 62.3 % (40.0-70.0) 09/11/17 17:30 Seg Neutrophils # 7.5 K/mm3 (1.8-7.7) 09/11/17 17:30 PT 16.6 Sec. (12.2-14.9) H 09/11/17 17:30 INR 1.27 (0.87-1.13) H 09/11/17 17:30 APTT 34.9 Sec. (24.2-36.6) 09/11/17 17:30 Thrombin Time 19.1 Sec. (15.1-19.6) 09/11/17 17:30 Sodium 141 mmol/L (137-145) 09/11/17 17:30 Potassium 3.2 mmol/L (3.6-5.0) L 09/11/17 17:30 Chloride 94.7 mmol/L (98-107) L 09/11/17 17:30 Carbon Dioxide 18 mmol/L (22-30) L 09/11/17 17:30 Anion Gap 32 mmol/L 09/11/17 17:30 BUN 52 mg/dL (7-17) H 09/11/17 17:30 Creatinine 9.5 mg/dL (0.7-1.2) H 09/11/17 17:30 Estimated GFR 5 ml/min 09/11/17 17:30 BUN/Creatinine Ratio 5 % 09/11/17 17:30 Glucose 106 mg/dL (65-100) H 09/11/17 17:30 Calcium 6.8 mg/dL (8.4-10.2) L 09/11/17 17:30 Troponin T 0.058 ng/mL (0.00-0.029) H 09/11/17 17:30 Triglycerides 131 mg/dL (2-149) 09/11/17 17:30 Cholesterol 122 mg/dL (50-199) 09/11/17 17:30 LDL Cholesterol Direct 60 mg/dL (50-130) 09/11/17 17:30 HDL Cholesterol 36 mg/dL (40-59) L 09/11/17 17:30 Cholesterol/HDL Ratio 3.38 % 09/11/17 17:30 <NORMA CHAUHAN - Last Filed: 09/12/17 17:53> Assessment and Plan Assessment and plan: I saw and evaluated the patient. I agree with the findings and the plan of care as documented in the Nurse Practitioner's~note, with the following corrections and additions. Ruling Machine Set Up Operator consulted. Will check Magnesium, and Phosphorus levels Hospitalist Physical - Constitutional Vitals: Temp Pulse Resp BP Pulse Ox 98.2 F 82 16 172/103 98 09/12/17 14:45 09/12/17 16:00 09/12/17 14:45 09/12/17 16:00 09/12/17 12:03 Results - Labs CBC & Chem 7: 09/11/17 17:30 09/12/17 12:40 Labs: Laboratory Last Values WBC 12.0 K/mm3 (4.5-11.0) H 09/11/17 17:30 RBC 4.64 M/mm3 (3.65-5.03) 09/11/17 17:30 Hgb 12.7 gm/dl (10.1-14.3) 09/11/17 17:30 Hct 40.3 % (30.3-42.9) 09/11/17 17:30 MCV 87 fl (79-97) 09/11/17 17:30 MCH 27 pg (28-32) L 09/11/17 17:30 MCHC 32 % (30-34) 09/11/17 17:30 RDW 15.8 % (13.2-15.2) H 09/11/17 17:30 Plt Count 235 K/mm3 (140-440) 09/11/17 17:30 Lymph % (Auto) 22.8 % (13.4-35.0) 09/11/17 17:30 [place] % (Auto) 9.5 % (0.0-7.3) H 09/11/17 17:30 Eos % (Auto) 4.5 % (0.0-4.3) H 09/11/17 17:30 Baso % (Auto) 0.9 % (0.0-1.8) 09/11/17 17:30 Lymph # 2.7 K/mm3 (1.2-5.4) 09/11/17 17:30 [place] # 1.1 K/mm3 (0.0-0.8) H 09/11/17 17:30 Eos # 0.5 K/mm3 (0.0-0.4) H 09/11/17 17:30 Baso # 0.1 K/mm3 (0.0-0.1) 09/11/17 17:30 Seg Neutrophils % 62.3 % (40.0-70.0) 09/11/17 17:30 Seg Neutrophils # 7.5 K/mm3 (1.8-7.7) 09/11/17 17:30 PT 16.6 Sec. (12.2-14.9) H 09/11/17 17:30 INR 1.27 (0.87-1.13) H 09/11/17 17:30 APTT 34.9 Sec. (24.2-36.6) 09/11/17 17:30 Thrombin Time 19.1 Sec. (15.1-19.6) 09/11/17 17:30 Sodium 138 mmol/L (137-145) 09/12/17 12:40 Potassium 4.8 mmol/L (3.6-5.0) D 09/12/17 12:40 Chloride 93.6 mmol/L (98-107) L 09/12/17 12:40 Carbon Dioxide 14 mmol/L (22-30) L 09/12/17 12:40 Anion Gap 35 mmol/L 09/12/17 12:40 BUN 58 mg/dL (7-17) H 09/12/17 12:40 Creatinine 10.4 mg/dL (0.7-1.2) H 09/12/17 12:40 Estimated GFR 5 ml/min 09/12/17 12:40 BUN/Creatinine Ratio 6 % 09/12/17 12:40 Glucose 106 mg/dL (65-100) H 09/12/17 12:40 Calcium 7.0 mg/dL (8.4-10.2) L 09/12/17 12:40 Total Bilirubin 0.60 mg/dL (0.1-1.2) 09/12/17 12:40 AST 18 units/L (5-40) 09/12/17 12:40 ALT 9 units/L (7-56) 09/12/17 12:40 Alkaline Phosphatase 154 units/L (35-129) H 09/12/17 12:40 Troponin T 0.058 ng/mL (0.00-0.029) H 09/11/17 17:30 Total Protein 7.2 g/dL (6.3-8.2) 09/12/17 12:40 Albumin 3.6 g/dL (3.9-5) L 09/12/17 12:40 Albumin/Globulin Ratio 1.0 % 09/12/17 12:40 Triglycerides 131 mg/dL (2-149) 09/11/17 17:30 Cholesterol 122 mg/dL (50-199) 09/11/17 17:30 LDL Cholesterol Direct 60 mg/dL (50-130) 09/11/17 17:30 HDL Cholesterol 36 mg/dL (40-59) L 09/11/17 17:30 Cholesterol/HDL Ratio 3.38 % 09/11/17 17:30
[2017-09-12] MEDS ORDERED: NACL 0.9 (PRIMING MACHINE ONLY DIALYSIS) MC ONE (13:55)
[2017-09-12 14:37] LABS: Albumin 3.6 g/dL (3.9-5); Bilirubin,Total 0.6 mg/dL (0.1-1.2); Chloride 93.6 mmol/L (98-107); Total Protein 7.2 g/dL (6.3-8.2)
[2017-09-12 15:06] LABS: Potassium 4.8 mmol/L (3.6-5.0)
[2017-09-12] MEDS ORDERED: NACL 0.9% 1000 ML 1,000 ML ONE (16:09)
[2017-09-12] MEDS: BABY ASPIRIN PO SCH (21:17)
[2017-09-12] MEDS: DILANTIN PO SCH ×2 (21:17→21:36)
[2017-09-12] MEDS: ZOLOFT PO SCH (21:35)
[2017-09-12] MEDS: ELIQUIS PO SCH (21:36)
[2017-09-12] MEDS: MEGACE PO SCH (21:36)
[2017-09-12] MEDS: TYLENOL PO PRN (21:45)
[2017-09-12] MEDS ORDERED: ONDANSETRON HCL 4 MG PO SCH (22:00)
[2017-09-13] MEDS: TYLENOL PO PRN ×2 (05:08→19:51)
[2017-09-13] MEDS: DILANTIN PO SCH ×3 (05:09→21:57)
[2017-09-13 05:48] LABS: Calcium 6.8 mg/dL (8.4-10.2); Chloride 98.6 mmol/L (98-107)
[2017-09-13 05:51] LABS: Potassium 3.3 mmol/L (3.6-5.0)
[2017-09-13 05:54] LABS: Basophils % (Auto) 0.6 % (0.0-1.8); Eosinophils % (Auto) 3.6 % (0.0-4.3); Hematocrit 32.5 % (30.3-42.9); Hemoglobin 10.4 gm/dl (10.1-14.3); Mean Corpuscular HGB Conc 32 % (30-34); Mean Corpuscular Hemoglobin 27 pg (28-32); Mean Corpuscular Volume 84 fl (79-97); Platelet Count 187 K/mm3 (140-440); Red Blood Count 3.85 M/mm3 (3.65-5.03); Red Cell Distribution Width 15.4 % (13.2-15.2)
--- NOTE | 2017-09-13 08:02 | Progress Note ---
Assessment and Plan 1. ESRD: Patient was last dialyzed yesterday. Continue hemodialysis three times a week, MWF schedule. 2. Anemia: Epogen as needed. 3. Hypertension: BP is fair. 4. CVA. 5. Seizure disorder. Await NH placement. Subjective Date of service: 09/13/17 Interval history: Patient is doing ok. Objective - Vital Signs Vital signs: Vital Signs - 12hr 09/12/17 09/12/17 09/12/17 21:30 21:45 22:00 Temperature 98.2 F Pulse Rate 87 Respiratory 20 20 20 Rate Blood Pressure 149/92 O2 Sat by Pulse 97 Oximetry 09/13/17 09/13/17 09/13/17 00:00 00:09 04:19 Temperature 98.2 F 97.9 F Pulse Rate 90 85 84 Respiratory 18 18 Rate Blood Pressure 158/100 160/96 O2 Sat by Pulse 95 95 Oximetry 09/13/17 05:08 Temperature Pulse Rate Respiratory 20 Rate Blood Pressure O2 Sat by Pulse Oximetry - General Appearance General appearance: well-developed, well-nourished, appears stated age, other ( no distress) EENT: ATNC, PERRL, mucous membranes moist, hearing intact Neck: supple Respiratory: Present: Clear to Ascultation Cardiology: regular, S1S2, no murmurs Gastrointestinal: normoactive bowel sounds Integumentary: no rash, warm and dry Neurologic: no focal deficit, no asterixis, confused, disoriented Musculoskeletal: other (no edema, left arm AVF) Psychiatric: cooperative - Lab 09/13/17 04:29 09/13/17 04:29 Most recent lab results Calcium 6.8 mg/dL (8.4-10.2) L 09/13/17 04:29
[2017-09-13] MEDS ORDERED: NACL 0.9% 100 ML IV PRN (08:30)
[2017-09-13] MEDS: CALAN SR PO SCH (09:24)
[2017-09-13] MEDS: ZESTRIL PO SCH (09:24)
[2017-09-13] MEDS: ELIQUIS PO SCH ×2 (09:25→21:56)
[2017-09-13] MEDS: MEGACE PO SCH ×2 (09:26→21:57)
[2017-09-13] MEDS: LOVENOX SUB-Q SCH (09:26)
[2017-09-13] MEDS: BABY ASPIRIN PO SCH (09:26)
[2017-09-13] MEDS ORDERED: NACL 0.9 (PRIMING MACHINE ONLY DIALYSIS) MC ONE (13:28)
--- NOTE | 2017-09-13 13:59 | Progress Note ---
Assessment and Plan 57 year old female with hx of ESRD, presented with seizure and hemiparesis. She has multiple lacunes on CT brain. Has presented with these symptoms in recent past. Continue ASA and Plavix, atorvastatin. Continue Dilantin at 300 mg daily at bedtime. Physical therapy and exercise. Subjective Date of service: 09/13/17 Principal diagnosis: TIA, seizure Interval history: Pt. down getting EEG and dialysis. She is doing well thus far. Objective - Exam Narrative Exam: Patient is off the floor getting studies done. - Vital Sign Vital Signs - 12hr 09/13/17 09/13/17 09/13/17 04:19 05:08 09:24 Temperature 97.9 F Pulse Rate 84 85 Respiratory 18 20 Rate Blood Pressure 160/96 160/96 O2 Sat by Pulse 95 Oximetry - Laboratory Findings CBC and BMP: 09/13/17 04:29 09/13/17 04:29 Abnormal Lab Findings: Abnormal Labs 09/11/17 09/11/17 09/11/17 17:30 17:30 17:30 WBC 12.0 H MCH 27 L RDW 15.8 H [place] % (Auto) 9.5 H Eos % (Auto) 4.5 H [place] # 1.1 H Eos # 0.5 H PT 16.6 H INR 1.27 H Potassium 3.2 L Chloride 94.7 L Carbon Dioxide 18 L BUN 52 H Creatinine 9.5 H Glucose 106 H Calcium 6.8 L Alkaline Phosphatase Troponin T 0.058 H Albumin HDL Cholesterol 36 L 09/12/17 09/13/17 09/13/17 12:40 04:29 04:29 WBC MCH 27 L RDW 15.4 H [place] % (Auto) 9.3 H Eos % (Auto) [place] # Eos # PT INR Potassium 3.3 L D Chloride 93.6 L Carbon Dioxide 14 L BUN 58 H 25 H Creatinine 10.4 H 6.5 H Glucose 106 H Calcium 7.0 L 6.8 L Alkaline Phosphatase 154 H Troponin T Albumin 3.6 L HDL Cholesterol
--- NOTE | 2017-09-13 15:37 | Progress Note ---
<RENA PATTEN - Last Filed: 09/13/17 15:37> Assessment and Plan Assessment and plan: Patient is a 57-year-old woman with a history of end-stage renal disease on dialysis Saturday, Saturday, Saturday, CVA, hypertension, seizure was brought to the emergency room per the emergency room physician because she had a seizure. Status Epilepticus Continue on Dilantin Frequent neuro checks. We will obtain EEG its pending Ativan when necessary Oxygen supplement when necessary Implement seizure precautions Neurology Following Supportive care Disposition patient will be discharge home tomorrow; if no episode of seizure. End-stage renal disease needing dialysis Nephrology following History of CVA Continue on ASA, statins and Physical therapy on board Hypertension Resume home antihypertensive medications Closely monitor blood pressure Hypokalemia Replaced Closely Monitor electrolytes Elevated Troponin Most likely due to ESRD; patient previous labs has been elevated troponin as well. Leukocytosis. Reactive,no source of infection Closely monitor DVT prophylaxis Lovenox History Interval history: Patient denies having any discomforts. No episode of seizure. Labs and nursing notes reviewed. Hospitalist Physical - Constitutional Vitals: Temp Pulse Resp BP Pulse Ox 97.9 F 85 20 160/96 95 09/13/17 04:19 09/13/17 09:24 09/13/17 05:08 09/13/17 09:24 09/13/17 04:19 General appearance: Present: no acute distress, other (alert oriented 2) - EENT Eyes: Present: PERRL ENT: hearing intact - Neck Neck: Present: supple - Respiratory Respiratory effort: normal Respiratory: bilateral: CTA - Cardiovascular Rhythm: regular Heart Sounds: Present: S1 & S2 - Abdominal General gastrointestinal: soft, non-tender - Integumentary Integumentary: Present: clear, warm, dry - Psychiatric Psychiatric: appropriate mood/affect, other (Impaired judgment) - Neurologic Neurologic: moves all extremities - Allied Health Allied health notes reviewed: nursing Results - Labs CBC & Chem 7: 09/13/17 04:29 09/13/17 04:29 Labs: Laboratory Last Values WBC 9.0 K/mm3 (4.5-11.0) 09/13/17 04:29 RBC 3.85 M/mm3 (3.65-5.03) 09/13/17 04:29 Hgb 10.4 gm/dl (10.1-14.3) 09/13/17 04:29 Hct 32.5 % (30.3-42.9) D 09/13/17 04:29 MCV 84 fl (79-97) 09/13/17 04:29 MCH 27 pg (28-32) L 09/13/17 04:29 MCHC 32 % (30-34) 09/13/17 04:29 RDW 15.4 % (13.2-15.2) H 09/13/17 04:29 Plt Count 187 K/mm3 (140-440) 09/13/17 04:29 Lymph % (Auto) 18.3 % (13.4-35.0) 09/13/17 04:29 [place] % (Auto) 9.3 % (0.0-7.3) H 09/13/17 04:29 Eos % (Auto) 3.6 % (0.0-4.3) 09/13/17 04:29 Baso % (Auto) 0.6 % (0.0-1.8) 09/13/17 04:29 Lymph # 1.6 K/mm3 (1.2-5.4) 09/13/17 04:29 [place] # 0.8 K/mm3 (0.0-0.8) 09/13/17 04:29 Eos # 0.3 K/mm3 (0.0-0.4) 09/13/17 04:29 Baso # 0.1 K/mm3 (0.0-0.1) 09/13/17 04:29 Seg Neutrophils % 68.2 % (40.0-70.0) 09/13/17 04:29 Seg Neutrophils # 6.1 K/mm3 (1.8-7.7) 09/13/17 04:29 PT 16.6 Sec. (12.2-14.9) H 09/11/17 17:30 INR 1.27 (0.87-1.13) H 09/11/17 17:30 APTT 34.9 Sec. (24.2-36.6) 09/11/17 17:30 Thrombin Time 19.1 Sec. (15.1-19.6) 09/11/17 17:30 Sodium 142 mmol/L (137-145) 09/13/17 04:29 Potassium 3.3 mmol/L (3.6-5.0) L D 09/13/17 04:29 Chloride 98.6 mmol/L (98-107) 09/13/17 04:29 Carbon Dioxide 24 mmol/L (22-30) D 09/13/17 04:29 Anion Gap 23 mmol/L 09/13/17 04:29 BUN 25 mg/dL (7-17) H 09/13/17 04:29 Creatinine 6.5 mg/dL (0.7-1.2) H 09/13/17 04:29 Estimated GFR 8 ml/min 09/13/17 04:29 BUN/Creatinine Ratio 4 % 09/13/17 04:29 Glucose 80 mg/dL (65-100) 09/13/17 04:29 Calcium 6.8 mg/dL (8.4-10.2) L 09/13/17 04:29 Total Bilirubin 0.60 mg/dL (0.1-1.2) 09/12/17 12:40 AST 18 units/L (5-40) 09/12/17 12:40 ALT 9 units/L (7-56) 09/12/17 12:40 Alkaline Phosphatase 154 units/L (35-129) H 09/12/17 12:40 Troponin T 0.058 ng/mL (0.00-0.029) H 09/11/17 17:30 Total Protein 7.2 g/dL (6.3-8.2) 09/12/17 12:40 Albumin 3.6 g/dL (3.9-5) L 09/12/17 12:40 Albumin/Globulin Ratio 1.0 % 09/12/17 12:40 Triglycerides 131 mg/dL (2-149) 09/11/17 17:30 Cholesterol 122 mg/dL (50-199) 09/11/17 17:30 LDL Cholesterol Direct 60 mg/dL (50-130) 09/11/17 17:30 HDL Cholesterol 36 mg/dL (40-59) L 09/11/17 17:30 Cholesterol/HDL Ratio 3.38 % 09/11/17 17:30 <GRAYSON BUCK M - Last Filed: 09/14/17 00:40> Hospitalist Physical - Constitutional Vitals: Temp Pulse Resp BP Pulse Ox 98.5 F 89 18 123/79 97 12/22/17 20:10 09/13/17 20:10 09/13/17 20:10 09/13/17 20:10 09/13/17 20:10 Results - Labs CBC & Chem 7: 09/13/17 04:29 09/13/17 04:29 Labs: Laboratory Last Values WBC 9.0 K/mm3 (4.5-11.0) 09/13/17 04:29 RBC 3.85 M/mm3 (3.65-5.03) 09/13/17 04:29 Hgb 10.4 gm/dl (10.1-14.3) 09/13/17 04:29 Hct 32.5 % (30.3-42.9) D 09/13/17 04:29 MCV 84 fl (79-97) 09/13/17 04:29 MCH 27 pg (28-32) L 09/13/17 04:29 MCHC 32 % (30-34) 09/13/17 04:29 RDW 15.4 % (13.2-15.2) H 09/13/17 04:29 Plt Count 187 K/mm3 (140-440) 09/13/17 04:29 Lymph % (Auto) 18.3 % (13.4-35.0) 09/13/17 04:29 [place] % (Auto) 9.3 % (0.0-7.3) H 09/13/17 04:29 Eos % (Auto) 3.6 % (0.0-4.3) 09/13/17 04:29 Baso % (Auto) 0.6 % (0.0-1.8) 09/13/17 04:29 Lymph # 1.6 K/mm3 (1.2-5.4) 09/13/17 04:29 [place] # 0.8 K/mm3 (0.0-0.8) 09/13/17 04:29 Eos # 0.3 K/mm3 (0.0-0.4) 09/13/17 04:29 Baso # 0.1 K/mm3 (0.0-0.1) 09/13/17 04:29 Seg Neutrophils % 68.2 % (40.0-70.0) 09/13/17 04:29 Seg Neutrophils # 6.1 K/mm3 (1.8-7.7) 09/13/17 04:29 PT 16.6 Sec. (12.2-14.9) H 09/11/17 17:30 INR 1.27 (0.87-1.13) H 09/11/17 17:30 APTT 34.9 Sec. (24.2-36.6) 09/11/17 17:30 Thrombin Time 19.1 Sec. (15.1-19.6) 09/11/17 17:30 Sodium 142 mmol/L (137-145) 09/13/17 04:29 Potassium 3.3 mmol/L (3.6-5.0) L D 09/13/17 04:29 Chloride 98.6 mmol/L (98-107) 09/13/17 04:29 Carbon Dioxide 24 mmol/L (22-30) D 09/13/17 04:29 Anion Gap 23 mmol/L 09/13/17 04:29 BUN 25 mg/dL (7-17) H 09/13/17 04:29 Creatinine 6.5 mg/dL (0.7-1.2) H 09/13/17 04:29 Estimated GFR 8 ml/min 09/13/17 04:29 BUN/Creatinine Ratio 4 % 09/13/17 04:29 Glucose 80 mg/dL (65-100) 09/13/17 04:29 Calcium 6.8 mg/dL (8.4-10.2) L 09/13/17 04:29 Total Bilirubin 0.60 mg/dL (0.1-1.2) 09/12/17 12:40 AST 18 units/L (5-40) 09/12/17 12:40 ALT 9 units/L (7-56) 09/12/17 12:40 Alkaline Phosphatase 154 units/L (35-129) H 09/12/17 12:40 Troponin T 0.058 ng/mL (0.00-0.029) H 09/11/17 17:30 Total Protein 7.2 g/dL (6.3-8.2) 09/12/17 12:40 Albumin 3.6 g/dL (3.9-5) L 09/12/17 12:40 Albumin/Globulin Ratio 1.0 % 09/12/17 12:40 Triglycerides 131 mg/dL (2-149) 09/11/17 17:30 Cholesterol 122 mg/dL (50-199) 09/11/17 17:30 LDL Cholesterol Direct 60 mg/dL (50-130) 09/11/17 17:30 HDL Cholesterol 36 mg/dL (40-59) L 09/11/17 17:30 Cholesterol/HDL Ratio 3.38 % 09/11/17 17:30
[2017-09-13] MEDS: ZOLOFT PO SCH (21:56)
[2017-09-14] MEDS: DILANTIN PO SCH ×2 (06:10→14:41)
--- NOTE | 2017-09-14 07:26 | Progress Note ---
Assessment and Plan 1. ESRD: Patient was last dialyzed yesterday. Continue hemodialysis three times a week, MWF schedule. 2. Anemia: Epogen as needed. 3. Hypertension: BP is fair. 4. CVA. 5. Seizure disorder. Await NH placement. Subjective Date of service: 09/14/17 Principal diagnosis: TIA, seizure Interval history: Patient is doing ok. Objective - Vital Signs Vital signs: Vital Signs - 12hr 09/13/17 09/13/17 09/13/17 20:00 20:10 23:58 Temperature 98.5 F 98.5 F Pulse Rate 90 89 77 Respiratory 18 18 Rate Blood Pressure 123/79 159/98 O2 Sat by Pulse 97 94 Oximetry 09/14/17 04:41 Temperature 98.3 F Pulse Rate 89 Respiratory 20 Rate Blood Pressure 160/98 O2 Sat by Pulse 99 Oximetry - General Appearance General appearance: well-developed, well-nourished, appears stated age, other ( no distress) EENT: ATNC, PERRL, hearing intact Neck: supple Respiratory: Present: Clear to Ascultation Cardiology: regular, S1S2, no murmurs Gastrointestinal: normoactive bowel sounds, no tenderness, no distended Integumentary: no rash, warm and dry Neurologic: no focal deficit, no asterixis, confused, disoriented Musculoskeletal: other (no edema, left arm AVF) Psychiatric: cooperative - Lab 09/13/17 04:29 09/13/17 04:29 Most recent lab results Calcium 6.8 mg/dL (8.4-10.2) L 09/13/17 04:29
[2017-09-14] MEDS: ZESTRIL PO SCH (10:06)
[2017-09-14] MEDS: BABY ASPIRIN PO SCH (10:06)
[2017-09-14] MEDS: ELIQUIS PO SCH (10:06)
[2017-09-14] MEDS: MEGACE PO SCH (10:07)
[2017-09-14] MEDS: CALAN SR PO SCH (10:07)
--- NOTE | 2017-09-14 15:32 | Discharge Summary ---
Providers - Providers Date of Admission: 09/11/17 22:26 Attending physician: GRAYSON BUCK MD 09/11/17 17:33 Consult to Physician [CONS] Urgent Consulting Provider: JA GONZALEZ Reason For Exam: esrd Notified:: awaiting call back 09/12/17 01:55 Consult to Physician [CONS] Routine Consulting Provider: SCOTTY GLEASON Reason For Exam: sz Place consult to:: Dr. Gleason Notified:: Mayra ECHEVARRIA 09/12/17 13:38 Physical Therapy Evaluation and Treat [CONS] Routine Comment: Reason For Exam: Hx of CVA Primary care physician: TERMITE HELPER Hospitalization Condition: Stable Hospital course: Patient is a 57-year-old woman with a history of end-stage renal disease on dialysis Saturday, Saturday, Saturday, CVA, hypertension, seizure was brought to the emergency room per the emergency room physician because she had a seizure. She was treated with Ativan, seizure medications were optimized. Electrolytes were repleted, she received neurology consult, she had no further seizures and was subsequently discharged Discharge diagnosis Status Epilepticus End-stage renal disease needing dialysis History of CVA Hypertension Hypokalemia Elevated Troponin Disposition: [id number]-06 HOME UND[facility] Time spent for discharge: 33 minutes Core Measure Documentation - Palliative Care Palliative Care/ Comfort Measures: Not Applicable - Core Measures Any of the following diagnoses?: none Exam - Constitutional Vitals: Temp Pulse Resp BP Pulse Ox 98.3 F 68 18 152/102 99 09/14/17 12:17 09/14/17 12:17 09/14/17 12:17 09/14/17 12:17 09/14/17 12:17 General appearance: Present: no acute distress, well-nourished - EENT Eyes: Present: PERRL ENT: hearing intact, clear oral mucosa - Neck Neck: Present: supple, normal ROM - Respiratory Respiratory effort: normal Respiratory: bilateral: CTA - Cardiovascular Heart Sounds: Present: S1 & S2. Absent: rub, click - Extremities Extremities: pulses symmetrical, No edema Peripheral Pulses: within normal limits - Abdominal General gastrointestinal: Present: soft, non-tender, non-distended, normal bowel sounds Female genitourinary: Present: normal - Integumentary Integumentary: Present: clear, warm, dry - Musculoskeletal Musculoskeletal: other - Psychiatric Psychiatric: no intact judgment & insight, cooperative - Neurologic Neurologic: CNII-XII intact, moves all extremities Plan Follow up with: PRIMARY CARE, [Primary Care Provider] - 3-5 Days
[2017-09-14 17:08] VITALS: BP 126/87
== END 2017-09-14 20:45 | disposition home health service (06) | DRG 100 ==
LOC: ED 17:28 → 4A 22:26
PROVIDERS: ADMIT Internal Medicine; ATTEND Internal Medicine
PROC: 5A1D70Z Performance of Urinary Filtration, Intermittent, Less than 6 Hours Per Day (ICD-10-PCS; principal; 2017-09-12)
PROC: 5A1D70Z Performance of Urinary Filtration, Intermittent, Less than 6 Hours Per Day (ICD-10-PCS; 2017-09-13)
DX: G40.901 Epilepsy, unspecified, not intractable, with status epilepticus (principal); N18.6 End stage renal disease; I13.2 Hypertensive heart and chronic kidney disease with heart failure and with stage 5 chronic kidney disease, or end stage renal disease; G45.9 Transient cerebral ischemic attack, unspecified; G81.94 Hemiplegia, unspecified affecting left nondominant side; E87.6 Hypokalemia; D72.829 Elevated white blood cell count, unspecified; I50.9 Heart failure, unspecified; D64.9 Anemia, unspecified; Z86.73 Personal history of transient ischemic attack (TIA), and cerebral infarction without residual deficits; Z79.82 Long term (current) use of aspirin; Z79.899 Other long term (current) drug therapy; Z82.49 Family history of ischemic heart disease and other diseases of the circulatory system
CPT/HCPCS: 36415; 70450; 70496; 70498; 80048; 80053; 80061; 84484; 85025; 85610; 85670; 85730; 93005; 93010; 95819; 96374; A9270-GY; J1165; J1650; J2405; J7030; J7050; Q9967

== ENCOUNTER 2017-09-19 18:56 | Emergency (ER) | payer MEDICARE ==
--- NOTE | 2017-09-19 20:48 | Emergency Department Report ---
ED General Adult HPI - General Chief complaint: Seizure Stated complaint: SEIZURE Time Seen by Provider: 09/19/17 20:33 Source: patient, family, EMS (ems notes not available at time of chart dictation), RN notes reviewed, old records reviewed Mode of arrival: Stretcher Limitations: Altered Mental Status - History of Present Illness Initial comments: This is a 57-year-old female whom I have evaluated in the past. In short, the patient has a past medical history of stroke, hypertension, end-stage renal disease on dialysis, possible seizure disorder, brought to the hospital today for postictal state and seizure. As per family, patient found on accounts, breathing sonorously, "it looks like she was breathing like she had a seizure." Patient has no recollection of this. Family reports the patient does not make urine. Patient's denies headache, neck pain, chest pain, abdominal pain, new different or worsening shortness of breath. Patient has chronic global weakness which is not a new portions are different. Patient recently admitted to the hospital for strokelike symptoms and possible breakthrough seizure, EEG was recommended, patient was seen in consultation with covering neurology, Dr. Gleason -: Sudden Consistency: now resolved Improves with: none Worsens with: none Associated Symptoms: confusion (chronic), malaise, shortness of breath (chronic) . denies: chest pain, cough, diaphoresis - Related Data Home Medications Medication Instructions Recorded Confirmed Last Taken Aspirin [Aspirin BABY CHEW TAB] 81 mg PO DAILY 09/11/17 09/19/17 09/10/17 AtorvaSTATin [Lipitor] 40 mg PO QHS 09/11/17 09/19/17 09/10/17 Lisinopril [Zestril TAB] 5 mg PO DAILY 09/11/17 09/19/17 09/10/17 Megestrol Acetate 20 mg PO BID 09/11/17 09/19/17 Unknown Verapamil ER [Calan SR] 240 mg PO DAILY 09/11/17 09/19/17 09/10/17 Clopidogrel [Plavix] 75 mg PO DAILY 09/19/17 09/19/17 Unknown Previous Rx's Medication Instructions Recorded Last Taken Type Apixaban [Eliquis] 5 mg PO BID #60 tablet 07/18/17 09/10/17 Rx Sertraline [Zoloft] 25 mg PO QHS #30 tablet 07/18/17 09/10/17 Rx Phenytoin [Dilantin] 100 mg PO Q8HR #90 capsule.er 09/19/17 Unknown Rx Allergies Allergy/AdvReac Type Severity Reaction Status Date / Time No Known Allergies Allergy Verified 09/11/17 18:05 ED Review of Systems ROS: Stated complaint: SEIZURE Other details as noted in HPI ED Past Medical Hx - Past Medical History Hx CVA: Yes (CVA 2016, TIA x12) Hx Congestive Heart Failure: Yes Hx Diabetes: No Hx Renal Disease: Yes (Dialysis MWF) Hx Asthma: No Hx COPD: No - Surgical History Additional Surgical History: Left AV graft - Social History Smoking Status: Never Smoker Substance Use Type: None - Medications Home Medications: Home Medications Medication Instructions Recorded Confirmed Last Taken Type Apixaban [Eliquis] 5 mg PO BID #60 tablet 07/18/17 09/19/17 09/10/17 Rx Sertraline [Zoloft] 25 mg PO QHS #30 tablet 07/18/17 09/19/17 09/10/17 Rx Aspirin [Aspirin BABY CHEW TAB] 81 mg PO DAILY 09/11/17 09/19/17 09/10/17 History AtorvaSTATin [Lipitor] 40 mg PO QHS 09/11/17 09/19/17 09/10/17 History Lisinopril [Zestril TAB] 5 mg PO DAILY 09/11/17 09/19/17 09/10/17 History Megestrol Acetate 20 mg PO BID 09/11/17 09/19/17 Unknown History Verapamil ER [Calan SR] 240 mg PO DAILY 09/11/17 09/19/17 09/10/17 History Clopidogrel [Plavix] 75 mg PO DAILY 09/19/17 09/19/17 Unknown History Phenytoin [Dilantin] 100 mg PO Q8HR #90 capsule.er 09/19/17 Unknown Rx ED Physical Exam - General Limitations: Other (patient is a poor historian. Patient follows commands.) General appearance: alert, in no apparent distress - Head Head exam: Present: atraumatic, normocephalic - Eye Eye exam: Present: normal appearance, PERRL, EOMI, other (visual acuity intact to finger counting, color perception, reading at a close distance). Absent: nystagmus - ENT ENT exam: Present: normal exam, normal orophraynx, mucous membranes moist, normal external ear exam - Neck Neck exam: Present: normal inspection, full ROM - Respiratory Respiratory exam: Present: normal lung sounds bilaterally. Absent: respiratory distress - Cardiovascular Cardiovascular Exam: Present: regular rate, normal rhythm, normal heart sounds. Absent: systolic murmur, diastolic murmur, rubs, gallop - GI/Abdominal GI/Abdominal exam: Present: soft, normal bowel sounds. Absent: distended, tenderness, guarding, rebound, rigid, pulsatile mass - Extremities Exam Extremities exam: Present: normal inspection, full ROM, normal capillary refill , other (upper extremity AV fistula, no redness, pus or streaking). Absent: pedal edema, joint swelling, calf tenderness - Back Exam Back exam: Present: normal inspection, full ROM. Absent: tenderness, CVA tenderness (R), paraspinal tenderness, vertebral tenderness - Neurological Exam Neurological exam: Present: alert (alert to name and location, able to recognize both family members), CN II-XII intact, other (Extraocular movements intact. Tongue midline. No facial droop. Facial sensation intact to light touch in the V1, V2, V3 distribution bilaterally. 5 and 5 strength in 4 extremities.. Sensation is intact to light touch in 4 extremities.). Absent: motor sensory deficit - Psychiatric Psychiatric exam: Present: normal affect, normal mood - Skin Skin exam: Present: warm, dry, intact, normal color. Absent: rash ED Course Vital Signs 09/19/17 09/19/17 09/19/17 19:53 19:58 20:00 Temperature 97.8 F Pulse Rate 97 H 97 H Respiratory 14 15 Rate Blood Pressure 150/100 O2 Sat by Pulse Oximetry 09/19/17 09/19/17 09/19/17 20:15 20:30 20:32 Temperature Pulse Rate 94 H 92 H Respiratory 15 15 18 Rate Blood Pressure 156/99 150/87 O2 Sat by Pulse Oximetry 09/19/17 09/19/17 09/19/17 20:40 21:49 22:00 Temperature Pulse Rate 98 H Respiratory 17 Rate Blood Pressure 150/100 159/102 169/103 O2 Sat by Pulse Oximetry 09/19/17 09/19/17 09/19/17 22:15 22:30 22:46 Temperature Pulse Rate Respiratory Rate Blood Pressure 171/105 171/104 200/129 O2 Sat by Pulse Oximetry 09/19/17 09/19/17 09/19/17 23:00 23:16 23:18 Temperature Pulse Rate 109 H 114 H 101 H Respiratory 13 23 20 Rate Blood Pressure 185/108 178/108 178/108 O2 Sat by Pulse 96 95 Oximetry 09/19/17 09/19/17 09/20/17 23:30 23:46 00:00 Temperature Pulse Rate 103 H 109 H 109 H Respiratory 17 18 16 Rate Blood Pressure 162/100 145/85 133/76 O2 Sat by Pulse 95 94 96 Oximetry 09/20/17 09/20/17 09/20/17 00:15 00:30 00:45 Temperature Pulse Rate 107 H 103 H 102 H Respiratory 20 22 22 Rate Blood Pressure 158/100 166/97 169/99 O2 Sat by Pulse 95 96 94 Oximetry 09/20/17 09/20/17 09/20/17 01:00 01:15 01:30 Temperature Pulse Rate 104 H 109 H 106 H Respiratory 20 20 24 Rate Blood Pressure 155/90 173/104 174/100 O2 Sat by Pulse 95 93 Oximetry 09/20/17 01:45 Temperature Pulse Rate 104 H Respiratory 16 Rate Blood Pressure 162/96 O2 Sat by Pulse 93 Oximetry - Reevaluation(s) Reevaluation #1: 09/19/17 22:44 Differential diagnosis, including but not limited to: Intracranial hemorrhage, breakthrough seizure secondary to medication noncompliance, pneumonia, electrolyte derangements Assessment and plan: 57-year-old female with history of convulsive events, history of noncompliance with antiepileptic drugs, who presents to the ER with a probable recurrent seizure secondary to medication noncompliance. Extensive discussion had with family. Family has a list of patient's medications with her , and they do not include the prescribed phenytoin which was prescribed for the patient during her recent hospitalization. As expected, the patient's phenytoin level was subtherapeutic. A noncontrast CT scan of the brain was negative for intracranial hemorrhage. Incidental findings were noted. X-ray the chest suggested pulmonary vascular congestion. However patient does not have rales or rhonchi and is saturating well, does not need emergent dialysis, and her potassium was within normal limits. Furthermore, the patient' s blood pressure was not significantly elevated. Patient was placed on seizure precautions, and was noted to have a quick generalized tonic-clonic seizure which resolved on its own. Patient has been ordered for 1 g of phenytoin load. We will continue to monitor the patient for resolution of her postictal status. In addition, I will refill the patient's phenytoin prescription, and explained to the family that is very important that she has to get her seizure medicine. Reevaluation #2: 09/20/17 00:52 Patient has been observed in the ER for hours without additional convulsive activity. She is following commands. She will be discharged at this time. Her family was extensively counseled as to the need to continue her antiepileptic drug therapy. Reevaluation #3: 09/20/17 01:24 Patient now tachycardic, and breathing quite sonorously. She is awake but following commands. May have had another seizure. I have not witnessed any convulsive events. Nursing staff has not witnessed any convulsive events. Family does not feel comfortable to take the patient home. We will continue to observe. She'll not be discharged at this time Reevaluation #4: 09/20/17 02:21 Patient following commands. Tachycardia resolved, resting heart rate now 102 bpm. Patient much more lucid. No convulsive events noted, Patient is able to walk with a 2 person assist. Patient will be discharged. ED Medical Decision Making - Lab Data Result diagrams: 09/19/17 21:26 Vital Signs 09/19/17 09/19/17 09/19/17 19:53 19:58 20:00 Temperature 97.8 F Pulse Rate 97 H 97 H Respiratory 14 15 Rate Blood Pressure 150/100 09/19/17 09/19/17 09/19/17 20:15 20:30 20:32 Temperature Pulse Rate 94 H 92 H Respiratory 15 15 18 Rate Blood Pressure 156/99 150/87 09/19/17 09/19/17 09/19/17 21:49 22:00 22:15 Temperature Pulse Rate Respiratory Rate Blood Pressure 159/102 169/103 171/105 Lab Results 09/19/17 09/19/17 Range/Units 21:26 21:26 Sodium 140 (137-145) mmol/L Potassium 4.2 (3.6-5.0) mmol/L Chloride 91.7 L (98-107) mmol/L Carbon Dioxide 25 (22-30) mmol/L Anion Gap 28 mmol/L BUN 51 H (7-17) mg/dL Creatinine 6.9 H (0.7-1.2) mg/dL Estimated GFR 7 ml/min BUN/Creatinine Ratio 7 % Glucose 83 (65-100) mg/dL Calcium 6.7 L (8.4-10.2) mg/dL Total Creatine Kinase 86 (30-135) units/L Phenytoin 0.8 L (10.0-20.0) ug/mL - Radiology Data Radiology results: report reviewed, image reviewed X-ray of the chest, interpreted by radiology myself: Pulmonary edema, pulmonary infiltrates, Noncontrast CT scan of the brain: Negative for intracranial hemorrhage, numerous diffuse sclerotic foci noted throughout the osseous structures, chronic ischemic changes noted, sclerotic foci may be related to metastatic disease. Critical care attestation.: If time is entered above; I have spent that time in minutes in the direct care of this critically ill patient, excluding procedure time. ED Disposition Clinical Impression: ESRD (end stage renal disease) on dialysis, Seizure Disposition: TO HOME OR SELFCARE Is pt being admited?: No Does the pt Need Aspirin: No Condition: Good Additional Instructions: Continue current outpatient medications, including the patient's seizure medication, phenytoin/Dilantin. It is very important for the patient to take his seizure medication as directed. It appears that the patient has not been receiving this medication, and this is the most likely reason why she is having breakthrough convulsions and seizures. Couple cases of seizures include disability, , paralysis, loss of quality of life. Therefore it is very important that the patient remained quite with her medication. The patient should not drive cars or operate motor vehicles for the next 6 months. The patient should follow-up with her primary care doctor or neurology specialist within the next 7-10 days. Please note that CT scan of the brain demonstrated nonspecific bony abnormalities of the skull which need to be followed up by primary care doctor within the next month. Not following up for these abnormalities may resultant undiagnosed tumor, cancer, malignancy. Blood pressure was elevated, and this also needs to be followed up by a primary care doctor or the patient's nephrology specialist. Long-term complications of hypertension and elevated blood pressure includes stroke, heart attack, disability, , paralysis, loss of quality of life. Return to the ER right away with new pain, worsened pain, migration of pain, fevers, chills, lethargy, irritability, projectile vomiting, change in mental status, confusion, inability to tolerate liquid feeds. Local neurology specialists including Dr. Kelly, Dr. Mccrary, Dr Patel Prescriptions: Phenytoin [Dilantin] 100 mg PO Q8HR #90 capsule.er Referrals: FAREED KELLOGG MD [Primary Care Provider] - 3-5 Days ZACK SINGH MD [Staff Physician] - 3-5 Days PETER KELLY MD [Staff Physician] - 3-5 Days CHELLE HERNANDEZ MD [Staff Physician] - 3-5 Days FLORINDA MCCRARY MD [Referring] - 3-5 Days
--- NOTE | 2017-09-19 21:48 | Cat Scan Report ---
FINAL REPORT PROCEDURE: CT HEAD/BRAIN WO CON TECHNIQUE: Computerized tomography of the head was performed without contrast material. HISTORY: sz weakness on eliquis COMPARISON: 09/11/2017, 06/07/2017 FINDINGS: There is stable low-attenuation in the left frontal lobe. Chronic appearing lacunar infarct is seen in bilateral thalami and right basal ganglia. There is periventricular white matter low attenuation, compatible with chronic microvascular ischemic changes. There is no CT evidence of acute intracranial hemorrhage, mass, hydrocephalus, or acute territorial infarction. The intracranial arteries are symmetric in density. The calvarium is diffusely thickened with numerous diffuse sclerotic foci throughout the visualized osseous structures. IMPRESSION: Chronic microvascular ischemic changes. Numerous sclerotic foci are seen throughout the calvarium, which may be related to metastatic disease. Recommend further evaluation if not already performed.
[2017-09-19 22:21] LABS: Calcium 6.7 mg/dL (8.4-10.2)
--- NOTE | 2017-09-19 22:21 | XRay Report ---
FINAL REPORT EXAM: XR CHEST 1V AP HISTORY: sz ? pna TECHNIQUE: Single upright AP chest PRIORS: None. FINDINGS: Cardiac silhouette is within normal range for size. There is some hazy perihilar pulmonary opacity bilaterally likely reflecting pulmonary edema. Pulmonary vasculature is within normal limits. No pleural fluid collection identified. No evidence for pneumothorax. IMPRESSION: Bilateral perihilar and pulmonary infiltrates suspicious for pulmonary edema
[2017-09-19] MEDS ORDERED: DILANTIN 1,000 MG in NACL 0.9% 250ML 250 ML IV ONE (23:00)
[2017-09-20 01:59] VITALS: BP 162/96
== END 2017-09-20 03:09 | disposition home or self-care (01) ==
LOC: ED 18:56
DX: R56.9 Unspecified convulsions (principal); I12.0 Hypertensive chronic kidney disease with stage 5 chronic kidney disease or end stage renal disease; I50.9 Heart failure, unspecified; Z86.73 Personal history of transient ischemic attack (TIA), and cerebral infarction without residual deficits; N18.6 End stage renal disease
CPT/HCPCS: 36415; 70450; 71010; 80048; 80185; 82550; 96365; 99285; J1165; J7050